=== PATIENT | female | born 1955 | race Caucasian/White ===

== ENCOUNTER 2016-08-16 07:14 | Day surgery (SDC) | payer BC ==
[~2016-08-16 07:14] MED LIST: RINGERS SOLUTION,LACTATED 1,000 ML IV PRN
[2016-08-16] MEDS ORDERED: RINGERS SOLUTION,LACTATED 1,000 ML IV ONE (08:07)
[2016-08-16 10:13] VITALS: BP 144/81
[2016-08-16] MEDS ORDERED: RINGERS SOLUTION,LACTATED 1,000 ML IV PRN (10:25)
--- NOTE | 2016-08-16 18:41 | OR ---
Operative Report - Dictated Report Narrative: OPERATIVE REPORT DATE OF OPERATION: 08/16/2016 PREOPERATIVE DIAGNOSIS: No recent dedicated colon studies. Diverticulosis POSTOPERATIVE DIAGNOSIS: Significant sigmoid diverticulosis. 2mm polyp at the hepatic flexure and 3mm rectal polyp (pathology pending) OPERATION: Colonoscopy with hot forceps polypectomy x 2 SURGEON: Denisha Cain MD ANESTHESIA: DOM Bustillos CRNA INDICATIONS FOR PROCEDURE: Patient is a 61-year-old female referred by Russ CATHERINE. She has had a colonoscopy in 2008 with the findings of diverticulosis. There is no family history of colon cancer. She has had some constipation and left lower quadrant pain FINDINGS: Significant sigmoid diverticulosis. 2mm ployp at the hepatic flexure and 3 mm polyp in the rectum (pathology pending) NARRATIVE OF PROCEDURE: The patient was identified in the holding area, and prior to the administration of anesthetic, a multidisciplinary timeout was observed. With the patient in the left lateral position and after the administration of intravenous sedation, the perineum was inspected. There was no evidence of pilonidal disease or skin breakdown. The external appearance of the anus was normal. Sphincter tone was good. The flexible fiberoptic colonoscope was inserted into the rectum which was insufflated with air. The rectal mucosa and submucosal vascular pattern appeared normal, the prep was seen to be complete. There was a 3mm polyp which was biopsied and then destroyed with electrocautery. The site appeared complete and hemostatic. The scope was advanced through the sigmoid colon, which contained numerous large nonimpacted, noninflamed diverticular openings. The scope was advanced up the descending colon, and around the splenic flexure where the triangular haustral architecture of the transverse colon was seen. The scope was advanced across the transverse colon to the hepatic flexure where a small area of polypoid change was noted. This was biopsied and destroyed with electrocautery. The site was seen to be complete and hemostatic. The scope was advanced around the hepatic flexure to the cecum, where the confluence of tenia and the ileocecal valve were identified. The mucosa at this level appeared normal. The scope was then slowly withdrawn in a circular fashion so that all aspects of colonic mucosa were inspected. The colon was relatively normal in caliber but slightly tortuous in course. The haustral architecture appeared well preserved throughout with no evidence of external compression. The mucosa and submucosal vascular pattern appeared normal, specifically there was no gross evidence to suggest colitis or inflammatory bowel disease and no AV malformations were seen. The diverticulosis was moderate in degree and confined primarily to the sigmoid colon. Aside from the polyp at the hepatic flexure and the rectal polyp , no additional polyps were encountered. The scope was gradually withdrawn to the level of the rectum. As much insufflated air as possible was removed. The scope was withdrawn from the patient and the procedure terminated. The patient tolerated the anesthetic and procedure well without complication and was transferred back to the ambulatory surgery area awake and in stable condition. The patient remained stable throughout a period of postoperative observation. She denied abdominal discomfort, was able to tolerate by mouth intake, and was up without assistance. I shared the operative findings with the patient and she was given copies of the photographs which appear in the medical record. She was discharged home with instructions not to engage in hazardous activity today , but she may resume normal activity tomorrow, and advance diet as tolerated. She is to continue those medications as listed in the history and physical exam. I made arrangements to contact her with her polyp pathology report and will make a recommendation for future colon surveillance interval based upon that result. I recommended that she continue a product like Benefiber to help with her diverticulosis and she has a pamphlet on diverticular disease ADDENDUM: Both polyps were Tubular Adenomas RECOMMENDATION: Colon surveillance in 5 years depending upon symptoms or findings reviewed and electronically signed
== END 2016-08-16 07:15 | disposition home or self-care (01) ==
LOC: AMB 07:14
PROVIDERS: ATTEND Surgery
PROC: 0DBE8ZX Excision of Large Intestine, Via Natural or Artificial Opening Endoscopic, Diagnostic (ICD-10-PCS; 2016-08-16)
PROC: 0DBP8ZX Excision of Rectum, Via Natural or Artificial Opening Endoscopic, Diagnostic (ICD-10-PCS; principal; 2016-08-16 08:30)
DX: Z12.11 Encounter for screening for malignant neoplasm of colon (principal); K63.5 Polyp of colon; K62.1 Rectal polyp; K57.30 Diverticulosis of large intestine without perforation or abscess without bleeding; K21.9 Gastro-esophageal reflux disease without esophagitis; E03.9 Hypothyroidism, unspecified; Z87.891 Personal history of nicotine dependence; Z68.22 Body mass index [BMI] 22.0-22.9, adult